=== PATIENT | female | born 1990 | race Caucasian/White ===

== ENCOUNTER 2016-11-19 12:11 | Emergency (ER) | payer OTHER ==
[2016-11-19 12:11] VITALS: BMI 29.5
[2016-11-19 12:45] LABS: HCG,QUALITATIVE URINE NEGATIVE (NEGATIVE)
[2016-11-19 12:54] LABS: SQUAMOUS EPITHIAL 25 /hpf (0-5); URINE BACTERIA RARE (<OCC); URINE BILIRUBIN NEGATIVE (NEGATIVE); URINE BLOOD NEGATIVE (NEGATIVE); URINE CLARITY Hazy (Clear); URINE COLOR Yellow (YELLOW); URINE GLUCOSE (UA) NORMAL (Normal); URINE LEUKOCYTE ESTERASE TRACE Leu/uL (Negative); URINE NITRATE NEGATIVE (NEGATIVE); URINE PROTEIN NEGATIVE (NEGATIVE); URINE UROBILINOGEN NORMAL mg/dL (0.2-1.0)
[2016-11-19] MEDS ORDERED: Sodium Chloride 0.9% 1,000 ML IV ONE (13:32)
--- NOTE | 2016-11-19 13:33 | C.PDOC ---
History Of Present Illness 25 y/o female pmhx uterine fibroids presents to the emergency department with complaints of lower abdominal and flank pain for the past few days with associated nausea and vomiting. Pt also feeling lightheaded. Pt states hasn't been able to tolerate PO. She states is it unlikely that she is , has contraceptive implant, does not get monthly menses. Denies dysuria, fever, chills, diarrhea, chest pain, SOB or any other complaints. Time Seen by Provider: 11/19/16 13:16 Chief Complaint (Nursing): Abdominal Pain History Per: Patient History/Exam Limitations: no limitations Onset/Duration Of Symptoms: Days Current Symptoms Are (Timing): Still Present Severity: Moderate Location Of Pain/Discomfort: RLQ, LLQ Radiation Of Pain To:: None Quality Of Discomfort: "Pain" Associated Symptoms: Nausea, Vomiting, Back Pain. denies: Fever, Chills, Diarrhea, Chest Pain, Urinary Symptoms Exacerbating Factors: None Alleviating Factors: None Recent travel outside of the [place]: No Past Medical History Reviewed: Historical Data, Nursing Documentation, Vital Signs Vital Signs: Last Vital Signs Temp 98.1 F 11/19/16 12:17 Pulse 81 11/19/16 12:17 Resp 20 11/19/16 12:17 BP 97/58 L 11/19/16 12:17 Pulse Ox 98 11/19/16 13:35 - [facility] Procedures DELIVERY OF PRODUCTS OF CONCEPTION, EXTERNAL APPROACH (09/05/15) EPISIOTOMY (06/13/14) INTRODUCE OF OTH THERAP SUBST INTO FEM REPROD, VIA OPENING (09/05/15) Family History: States: Unknown Family Hx - Social History Hx Tobacco Use: No Hx Alcohol Use: No Hx Substance Use: No - Immunization History Hx Tetanus Toxoid Vaccination: No Hx Influenza Vaccination: Yes Hx Pneumococcal Vaccination: No Review Of Systems Except As Marked, All Systems Reviewed And Found Negative. Constitutional: Negative for: Fever, Chills Cardiovascular: Negative for: Chest Pain Gastrointestinal: Positive for: Nausea, Vomiting, Abdominal Pain. Negative for : Diarrhea Genitourinary: Negative for: Dysuria, Hematuria Physical Exam - Physical Exam Appears: Non-toxic, No Acute Distress Skin: Warm, Dry, No Rash Head: Atraumatic, Normacephalic Oral Mucosa: Moist Neck: Normal, Normal ROM, Supple Chest: Symmetrical Cardiovascular: Rhythm Regular Respiratory: Normal Breath Sounds, No Rales, No Rhonchi, No Wheezing Gastrointestinal/Abdominal: Soft, Tenderness (diffuse lower abdominal), No Guarding, No Rebound Back: Other (mild flank tenderness) Neurological/Psych: Oriented x3, Normal Speech, Normal Cognition ED Course And Treatment - Laboratory Results Result Diagrams: 11/19/16 14:10 11/19/16 14:10 O2 Sat by Pulse Oximetry: 98 (room air) Pulse Ox Interpretation: Normal Medical Decision Making Medical Decision Making: Patient with no fever, no elevated WBC count, not , positive stool on X Ray, feeling better, tolorating POI. Plan to discharge. Disposition Counseled Patient/Family Regarding: Studies Performed, Diagnosis - Disposition Referrals: at [facility] [Outside] Disposition: HOME/ ROUTINE Disposition Time: 18:25 Condition: STABLE Additional Instructions: Siga con covarrubias doctor o la clinica. Regrese a la januray de emergenci con cualquier othro problema. Instructions: Enteritis (ED), Constipation (ED) Forms: Gen Discharge Inst Moroccan, [facility] (Moroccan) - POA Present On Arrival: None - Clinical Impression Clinical Impression: Abdominal pain, Constipation - Scribe Statement The provider has reviewed the documentation as recorded by the Gilberto Trinh Provider Attestation: All medical record entries made by the Gilberto were at my direction and personally dictated by me. I have reviewed the chart and agree that the record accurately reflects my personal performance of the history, physical exam, medical decision making, and the department course for this patient. I have also personally directed, reviewed, and agree with the discharge instructions and disposition.
[2016-11-19] MEDS ORDERED: Sodium Chloride 0.9% 1,000 ML ONE (13:54)
[2016-11-19 14:14] LABS: BASO # 0.1 K/uL (0.0-0.2); BASO % 0.6 % (0.0-2.0); EOS # 0.1 K/uL (0.0-0.7); EOS % 0.7 % (0.0-4.0); HEMOGLOBIN 14.4 g/dL (11.0-16.0); LYMPH # 3.1 K/uL (1.0-4.3); LYMPH % 30.9 % (20.0-40.0); MEAN CELL VOLUME 84.4 fL (81.0-99.0); MEAN CORPUSCULAR HEMOGLOBIN 28.6 pg (27.0-31.0); MEAN CORPUSCULAR HGB CONC 33.8 g/dL (33.0-37.0); MEAN PLATELET VOLUME 8.2 fL (7.2-11.7); MONO # 0.7 K/uL (0.0-0.8); MONO % 6.6 % (0.0-10.0); NEUT # 6.1 K/uL (1.8-7.0); NEUT % 61.2 % (50.0-75.0); RBC 5.05 Mil/uL (3.80-5.20)
[2016-11-19 14:27] LABS: GFR AFRICAN-AMERICAN > 60; GFR NON-AFRICAN AMERICAN > 60
[2016-11-19 14:28] LABS: BLOOD UREA NITROGEN 11 mg/dL (7-17); CALCIUM 9.3 mg/dl (8.6-10.4)
--- NOTE | 2016-11-19 16:08 | US ---
HISTORY: pelvic pain, hx of fibroids COMPARISON: Pelvic ultrasound performed 10/14/14 TECHNIQUE: Real-time transabdominal pelvic ultrasound was performed. In addition a transvaginal pelvic ultrasound was necessary to better depict pelvic anatomy. FINDINGS: UTERUS: Measures 7.7 x 3.5 x 4.3 cm. Anteverted. ENDOMETRIUM: Measures 6 mm in diameter. CERVIX: No cervical abnormality identified. RIGHT OVARY: Measures 2.7 x 2.2 x 2.5 cm. Blood flow is demonstrated. LEFT OVARY: Measures 3.0 x 2.4 x 2.5 cm. Blood flow is demonstrated. FREE FLUID: Small fluid within the cul-de-sac. OTHER FINDINGS: None. IMPRESSION: Small pelvic free fluid, may be physiologic. Otherwise unremarkable study as above.
--- NOTE | 2016-11-19 17:50 | RAD ---
HISTORY: abdominal pain COMPARISON: Abdominal radiographs performed 03/01/16 FINDINGS: BOWEL: Nonobstructive bowel gas pattern. No definite free air. BONES: No acute osseous abnormality is detected. OTHER FINDINGS: Elevation of the right hemidiaphragm. IMPRESSION: No acute findings. See above.
[2016-11-19 18:30] VITALS: BP 103/67
[2016-11-19 18:43] VITALS: PULSE 69; RESP 16; TEMP 98.3; O2SAT 99
== END 2016-11-19 18:45 | disposition home or self-care (01) ==
LOC: C.ER 12:11
DX: K59.00 Constipation, unspecified (principal); R10.30 Lower abdominal pain, unspecified
CPT/HCPCS: 74000; 76830; 76856; 80048; 81001; 84702; 84703; 85025; 96361; 96374; 96375; 99285; J1885; J2405; J7040

== ENCOUNTER 2017-12-19 10:10 | Emergency (ER) | payer MEDICAID ==
[2017-12-19 10:10] VITALS: BMI 29.5
[2017-12-19 10:18] VITALS: RESP 18; TEMP 97.5
[2017-12-19] MEDS ORDERED: Sodium Chloride 0.9% 1,000 ML IV ONE (11:06)
--- NOTE | 2017-12-19 11:08 | C.PDOC ---
History Of Present Illness 27 y/o female currently 19 weeks presents to ED with c/o low abdominal cramping pain since yesterday. Patient reports vaginal spotting, dizziness, vomiting and headache since yesterday. Patient has a scheduled OBGYN appointment on 12/27/18. Patient denies dysuria, fever, chills, back pain, dysuria or any other complaints at this time. Time Seen by Provider: 12/19/17 10:28 Chief Complaint (Nursing): Abdominal Pain History Per: Patient History/Exam Limitations: no limitations Onset/Duration Of Symptoms: Days Current Symptoms Are (Timing): Still Present Location Of Pain/Discomfort: Suprapubic Past Medical History Reviewed: Historical Data, Nursing Documentation, Vital Signs Vital Signs: Last Vital Signs Temp 97.5 F L 12/19/17 10:14 Pulse 78 12/19/17 13:38 Resp 18 12/19/17 13:38 BP 110/72 12/19/17 13:38 Pulse Ox 98 12/19/17 13:38 - Medical History PMH: No Chronic Diseases Surgical History: No Surg Hx - [facility] Procedures DELIVERY OF PRODUCTS OF CONCEPTION, EXTERNAL APPROACH (09/05/15) EPISIOTOMY (06/13/14) INTRODUCE OF OTH THERAP SUBST INTO FEM REPROD, VIA OPENING (09/05/15) Family History: States: No Known Family Hx - Social History Hx Tobacco Use: No Hx Alcohol Use: No Hx Substance Use: No - Immunization History Hx Tetanus Toxoid Vaccination: No Hx Influenza Vaccination: Yes Hx Pneumococcal Vaccination: No Review Of Systems Constitutional: Negative for: Fever, Chills Gastrointestinal: Positive for: Nausea, Vomiting, Abdominal Pain Genitourinary: Positive for: Vaginal Bleeding. Negative for: Dysuria, Vaginal Discharge Skin: Negative for: Rash Neurological: Positive for: Headache Physical Exam - Physical Exam Appears: Non-toxic, No Acute Distress Skin: Warm, Dry, No Rash Head: Atraumatic, Normacephalic Eye(s): bilateral: Normal Inspection Oral Mucosa: Moist Neck: Supple Cardiovascular: Rhythm Regular Respiratory: Normal Breath Sounds, No Rales, No Rhonchi, No Wheezing Gastrointestinal/Abdominal: No Tenderness, No Guarding, No Rebound, Other ( Gravid abdomen consistent with ) Back: No CVA Tenderness Neurological/Psych: Oriented x3, Normal Speech, Normal Cognition ED Course And Treatment - Laboratory Results Result Diagrams: 12/19/17 11:34 12/19/17 11:34 O2 Sat by Pulse Oximetry: 99 (RA) Pulse Ox Interpretation: Normal Medical Decision Making Medical Decision Making: On re-exam, the patient reports improvement of symptoms,. Ambulatory in the ED with steady gait. Lungs are CTA, heart is RRR, abdomen is soft, non-tender and the patient is tolerating PO well. Follow up with the medical doctor within 1-2 days, return if worsened. Disposition - Disposition Referrals: [facility] [Outside] [facility] [Outside] Disposition: HOME/ ROUTINE Disposition Time: 13:00 Condition: GOOD Additional Instructions: Follow up with the medical doctor within 1-2 days. Return if worsened. Prescriptions: Metoclopramide [Reglan] 1 tab PO TID PRN #25 tab PRN Reason: Nausea/Vomiting Instructions: Threatened Miscarriage Forms: Aleth (Danish) Print Language: SETSWANA - Clinical Impression Clinical Impression: Threatened - PA / SKI INSTRUCTOR / Resident Statement MD/DO has reviewed & agrees with the documentation as recorded. - Scribe Statement The provider has reviewed the documentation as recorded by the Scribwoody Vergara All medical record entries made by the Gilberto were at my direction and personally dictated by me. I have reviewed the chart and agree that the record accurately reflects my personal performance of the history, physical exam, medical decision making, and the department course for this patient. I have also personally directed, reviewed, and agree with the discharge instructions and disposition.
[2017-12-19] MEDS ORDERED: Sodium Chloride 0.9% 1,000 ML ONE (11:21)
[2017-12-19 11:53] LABS: BASO % 0.3 % (0.0-2.0); EOS # 0.1 K/uL (0.0-0.7); EOS % 0.9 % (0.0-4.0); LYMPH # 2.8 K/uL (1.0-4.3); LYMPH % 30.5 % (20.0-40.0); MEAN CELL VOLUME 85.1 fL (81.0-99.0); MEAN CORPUSCULAR HEMOGLOBIN 29.7 pg (27.0-31.0); MEAN PLATELET VOLUME 8.2 fL (7.2-11.7); MONO # 0.6 K/uL (0.0-0.8); MONO % 6.8 % (0.0-10.0); NEUT # 5.6 K/uL (1.8-7.0); NEUT % 61.5 % (50.0-75.0); RBC 3.88 Mil/uL (3.80-5.20); RED CELL DISTRIBUTION WIDTH 13.3 % (11.5-14.5); WHITE BLOOD COUNT 9.2 K/uL (4.8-10.8)
[2017-12-19 11:56] LABS: HCG,QUALITATIVE URINE POSITIVE (NEGATIVE); HEMOGLOBIN 11.5 g/dL (11.0-16.0)
[2017-12-19 12:05] LABS: SQUAMOUS EPITHIAL 20 /hpf (0-5); URINE BILIRUBIN NEGATIVE (NEGATIVE); URINE BLOOD NEGATIVE (NEGATIVE); URINE CLARITY Hazy (Clear); URINE COLOR Yellow (YELLOW); URINE GLUCOSE (UA) NORMAL (Normal); URINE LEUKOCYTE ESTERASE TRACE Leu/uL (Negative); URINE PROTEIN NEGATIVE (NEGATIVE)
[2017-12-19 12:17] LABS: ALB/GLOB RATIO 1.3 (1.0-2.1); ALBUMIN 3.6 g/dL (3.5-5.0); ALT/SGPT 25 U/L (9-52); AST/SGOT 16 U/L (14-36); BLOOD UREA NITROGEN 8 mg/dL (7-17); CALCIUM 9.1 mg/dl (8.6-10.4); GFR NON-AFRICAN AMERICAN > 60
--- NOTE | 2017-12-19 12:38 | US ---
Date of service: 12/19/2017 PROCEDURE: OB Pelvic Ultrasound HISTORY: 19 weeks, vag bleed, pelvic pain LMP: 08/06/2017 COMPARISON: No relevant prior imaging. FINDINGS: UTERUS: Placenta: Posterior. Presentation: Cephalic. BPD: 3.8 cm compatible with estimated gestational age of 17 weeks, 4 days. HC: 14.3 cm compatible with estimated gestational age of 17 weeks, 4 days. AC: 11.0 cm compatible with estimated gestational age of 16 weeks, 6 days. FL: 2.6 cm compatible with estimated gestational age is 17 weeks, 5 days. Heart rate: 146 bpm. age (Ultrasound estimated): 17 weeks, 3 days Tamera-gestational hemorrhage: Subchorionic hemorrhage measuring 4.8 x 1.4 x 2.1 cm Date of delivery (Ultrasound estimated) : 05/26/2018 EFW 190.1 grams 28.5 grams (7 ounces 1 ounce) CERVIX: Measures 3.6 cm. Long and closed. No cervical abnormality seen. FREE FLUID: None. OTHER FINDINGS: None. IMPRESSION: Single live intrauterine gestation with average ultrasound age of 17 weeks, 3 days. heart rate 146 beats per minute. Cervix long and closed. Subchorionic hemorrhage measuring 4.8 x 1.4 x 2.1 cm
[2017-12-19 13:39] VITALS: BP 110/72; PULSE 78
[2017-12-20 17:04] VITALS: O2SAT 99
== END 2017-12-19 13:39 | disposition home or self-care (01) ==
LOC: C.ER 10:10
DX: O20.0 Threatened abortion (principal); Z3A.19 19 weeks gestation of pregnancy
CPT/HCPCS: 76815; 80053; 81001; 84702; 84703; 85025; 86850; 86900; 96361; 96374; 99284; J2405; J7030

== ENCOUNTER 2018-02-06 17:15 | Emergency (ER) | payer MEDICAID ==
[2018-02-06 18:38] LABS: SQUAMOUS EPITHIAL 12 /hpf (0-5); URINE BACTERIA RARE (<OCC); URINE BILIRUBIN NEGATIVE (NEGATIVE); URINE BLOOD NEGATIVE (NEGATIVE); URINE CLARITY Hazy (Clear); URINE COLOR Yellow (YELLOW); URINE GLUCOSE (UA) NORMAL (Normal); URINE LEUKOCYTE ESTERASE TRACE Leu/uL (Negative); URINE PROTEIN NEGATIVE (NEGATIVE); URINE UROBILINOGEN NORMAL mg/dL (0.2-1.0)
--- NOTE | 2018-02-06 19:27 | OBHP ---
Datetime: 02/06/2018 18:50 IP Adm Impression: , intrauterine ; No Active Labor IP Chief Complaint Other: Pelvic pain IP Admit Plan: Discharge home Admit Comment, IP Provider: Patient is Portuguese-speaking; translation by Cecily Goldman 27 y.o. , revised EDILMA 05/26/18 per patient, 24w 3d c/o sudden onset lower abdominal pain at 1500 hours, pain scale 8/10, described as "if the baby is pressing down". (+) FM; denies LOF, VB, Ctx . Patient states this is not the first time she has experienced this type of pain: first time 2 diana hs ago; apparently treated for presumptive UTI. Also, pain started after receiving a disturbing phone call ... her maternal grandmother is "dying". 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 (+) h/o syphilis, diagnos ed 2013, treated with weekly injections x 3. Denies abnormal Pap; denies any other STI PMH: denies PSH: denies NKDA Meds: PNV, folic acid - each, once a day Soc Hx: denies tobacco, illicit drug or EtOH use. With FOB x 4 1/2 years; lives with him and her/t heir children. Unemployed Fam Hx: Mother alive 49 y.o. - uterine CA. Father alive 49 y.o. - no med issues. MGM - h/o uterin e cancer. P.E.: as above. Small, crying at times; in NAD. Awake, alert, oriented to time, person and place. Cooperative Assessment: 27 y.o. P2, 24w 3d, intermittent LAP with exacerbation today - may be stress- induced secondary to the sad news about her grandmother. FHR is appropriate for gestational age. Patient drin ks "not much water", and admits to not havving much of an appetite - not eating much. Advised to inco rporate more water intake, and to attempt to eat smaller meals, more frequently. Patient reassured; clinically stable. Plan: 1) U/A Addendum: U/A = trace leuk esterase; S.G. 1.021, trace ketones Assessment: Musculoskeletal pain most likely stress-induced; with short interval between pregnanci es. As above. Clinically stable. Plan: 1) Discharge home 2) Keep next scheduled appointment Pelvic Type - PN: Adequate Extremities - PN: Normal Abdomen - PN: Normal Back - PN: Normal Breast - PN: Not Done Lungs - PN: Normal Heart - PN: Normal Thyroid - PN: Not Done Neurologic - PN: Normal HEENT - PN: Normal General - PN: Normal Presentation-Admit: Vertex FHR - Baseline A Provider: 155 Contraction Comments Provider: none Comments, ACOG Physical Exam: Abdomen: Gravid. Soft in all quadrants. +/- (?)suprapubic tenderness All other systems reviewed and are negative Gestation - Est Wks by US: 24w 3d EGA AdmitDate IP: 24.3 Vital Signs Provider: Reviewed; Within Normal Limits IP Chief Complaint: Other NICHD Decel Fetus A IP Provider: None Dilatation, Provider: 0 Effacement, Provider: 0 Station, Provider: n/a Genitourinary Exam: Normal DTRs - PN: Not Done
[2018-02-07 00:48] VITALS: BP 100/70; PULSE 91
== END 2018-02-06 19:25 | disposition home or self-care (01) ==
LOC: C.EROB 17:15
DX: O26.892 Other specified pregnancy related conditions, second trimester (principal); R10.2 Pelvic and perineal pain; Z3A.24 24 weeks gestation of pregnancy

== ENCOUNTER 2018-03-18 18:48 | Emergency (ER) | payer MEDICAID ==
[2018-03-18 19:56] LABS: SQUAMOUS EPITHIAL 2 /hpf (0-5); URINE BACTERIA RARE (<OCC); URINE BILIRUBIN NEGATIVE (NEGATIVE); URINE BLOOD NEGATIVE (NEGATIVE); URINE CLARITY Clear (Clear); URINE COLOR Straw (YELLOW); URINE GLUCOSE (UA) NORMAL (Normal); URINE LEUKOCYTE ESTERASE NEG Leu/uL (Negative); URINE PROTEIN NEGATIVE (NEGATIVE); URINE UROBILINOGEN NORMAL mg/dL (0.2-1.0)
--- NOTE | 2018-03-18 23:25 | OBHP ---
Datetime: 03/18/2018 23:01 IP Adm Impression: , intrauterine ; No Active Labor IP Chief Complaint Other: No movement IP Admit Plan: Discharge home Admit Comment, IP Provider: Patient seen and evaluated at approximately 1905 hours. Patient is Divehi-speaking 27 y.o. , LMP unsure, EDILMA 05/26/18, EGA 30w 1d c/o no FM "all day" since 0800 hours. Also re ports LOF since 0830 hours " like water". lastly c/o LAP "all day". Last had sexual intercourse 1 wee k ago. care: [facility]; last visit 2 weeks ago; next visit Saturday03/21/18. Reportedly no is sues. 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 Denies other STIS, myoma, ovarian cysts. PMH: denies PSH: denies NKDA Meds: PNV, folic acid - each once daily Soc Hx: denies tobacco, illicit drug or EtOH use. Lives with FOB, together x 4 1/2 years. Unemploy ed Fam Hx: Mother alive 49 - uterine CA, S/P hysterectomy, HTN. Father alive 49 no med issues. MGM - uterine CA P.E.: as above. WD in NAD. Awake, alert, oriented to time, person and place. Pleasant and cooperat hakeem. FOB present Assessment: 27 y.o. P2, 30w 1d, No FM - for evaluation. No evidence of ROM. Category 1 soto ng. Clinically stable. Plan: 1) U/A 2) OB USG with BPP Addendum: - U/A: negative - OB USG: MARIELY 13.59cm, cervix. 3.50cm. cephalic, posterior fundal placenta Assessment: 27 y.o. P2, 30 w 1d, reassuring evaluation. No evidence of UTI. Pain is musculos keletal in origin. This was all D/W patient who expressed an understaindng. No questions offered. Pat ient is clinically stable. Plan: 1) discharge home 2) Reviewed S/S PTL 3) Keep all schedualed appointments Pelvic Type - PN: Adequate Extremities - PN: Normal Abdomen - PN: Normal Back - PN: Normal Breast - PN: Not Done Lungs - PN: Normal Heart - PN: Normal Thyroid - PN: Not Done Neurologic - PN: Normal HEENT - PN: Normal General - PN: Normal FHR - Baseline A Provider: 135 Contraction Comments Provider: none Comments, ACOG Physical Exam: Abdomen: Gravid. Soft. nontender in all quadrants Perineum: dry Spec: no pooling. Nitrazine (-) Extremities: no calf tenderness All other systems reviewed and are negative EGA AdmitDate IP: 30.1 Vital Signs Provider: Reviewed; Within Normal Limits IP Chief Complaint: Suspected ruptured membranes; Other Dilatation, Provider: FT Effacement, Provider: long Station, Provider: N/A Genitourinary Exam: Normal DTRs - PN: Normal
[2018-03-19 01:58] VITALS: BP 114/69; PULSE 82; RESP 20; TEMP 97.1; O2SAT 98
--- NOTE | 2018-03-19 08:56 | US ---
Date of service: 03/18/2018 PROCEDURE: Obstetrical ultrasound examination HISTORY: No FM since 800am; P3 COMPARISON: 12/19/2017 TECHNIQUE: Transabdominal FINDINGS: Examination demonstrates a single live intrauterine gestation in transverse lie. The heart rate is 138.9 beats per minute. A normal quantity of amniotic fluid is visualized. A fundal placenta is identified. There is no evidence of placenta previa. The cervix is closed and measures 3.8 cm, measured transvaginally. biometry demonstrates a gestational age of 31 weeks 3 days. The EDILMA by ultrasound is 05/17/2018. The EFW is 1696 g. Limited review of anatomy demonstrates fluid distending the stomach and urinary bladder. Two normal kidneys are demonstrated without evidence of hydronephrosis. The anterior abdominal wall is intact. A three-vessel umbilical cord is identified. Duplex Doppler ultrasound examination of the umbilical artery shows an S/D ratio of 3.0, within normal limits. Limited biophysical profile examination demonstrates a score of 8 out of 8. Normal movement was demonstrated sonographically. IMPRESSION: Single live intrauterine gestation of approximately 31 weeks 3 days without gross anatomic abnormality. Anatomic evaluation was limited given the late stage of gestation. Fundal placenta. No placenta previa. Normal amniotic fluid volume. Transverse lie. EFW 1696 g. Biophysical profile score 8 out of 8. The preliminary findings for this examination were reported by [facility] at 10:20 p.m. on 03/18/2018. There is concurrence of this report with the preliminary findings.
== END 2018-03-18 21:54 | disposition home or self-care (01) ==
LOC: C.EROB 18:48
DX: O36.8130 Decreased fetal movements, third trimester, not applicable or unspecified (principal); Z3A.30 30 weeks gestation of pregnancy

== ENCOUNTER 2018-05-07 11:43 | Outpatient (CLI) | payer SELFPAY | END 2018-05-07 11:44 | disposition home or self-care (01) | LOC: C.LAB 11:43 | DX: Z34.83 Encounter for supervision of other normal pregnancy, third trimester (principal) ==

== ENCOUNTER 2018-05-19 13:57 | Inpatient (IN) | payer MEDICAID ==
[2018-05-26] MEDS ORDERED: Lactated Ringer's 1,000 ML IV SCH (18:00)
[2018-05-26 18:39] LABS: BASO % 0.5 % (0.0-2.0); EOS % 0.4 % (0.0-4.0); HEMOGLOBIN 11.6 g/dL (11.0-16.0); LYMPH % 34.3 % (20.0-40.0); MEAN CELL VOLUME 81.1 fL (81.0-99.0); MEAN CORPUSCULAR HEMOGLOBIN 26.6 pg (27.0-31.0); MEAN CORPUSCULAR HGB CONC 32.8 g/dL (33.0-37.0); MEAN PLATELET VOLUME 9.1 fL (7.2-11.7); MONO # 0.6 K/uL (0.0-0.8); NEUT % 57.8 % (50.0-75.0); RBC 4.35 Mil/uL (3.80-5.20); RED CELL DISTRIBUTION WIDTH 16.2 % (11.5-14.5); WHITE BLOOD COUNT 8.6 K/uL (4.8-10.8)
--- NOTE | 2018-05-26 18:51 | OBADHP ---
Datetime: 05/26/2018 17:37 Admit Comment, IP Provider: Patient is a 27 year old at 40w1d EDILMA 05/25/18 by LMP who presents for suspected rupture of membranes. Patient states that she has been leaking fluid since 3am today. Initially she thought that it was urine however when the leaking did not stop she came in to be evalu ated. She states that she has also been experiencing a headache and dizziness that started this morni ng as well. She last ate breakfast this morning. She endorses +FM, denies CTX, VB. Issues: Denies OB Hx: 1. 2014 at term, female , 7lbs 6oz no complications 2. 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 2014, (+) RPR treated IM x 4, weekly Denies other STIS, fibroids, ovarian cysts. Allergies: NKDA Past Medical History: denies Past Surgical History: denies Medications: PNV, folic acid - each once daily Social History: denies tobacco, illicit drug or EtOH use. Lives with FOB, together x 4 1/2 years. Unemployed Family History: Mother alive 49 - uterine CA, S/P hysterectomy, HTN. Father alive 49 no med issue s. MGM - uterine CA PE: see above A/P: 27 year old at 40w1d who presents with premature rupture of membranes -Admit to unit -CEFM and TOCO -Admission labs: CBC, CMP, T+S, UA, RPR -Lactated Ringers at 125cc/hr -GBS negative - no antibiotics needed at this time -Cytotec 50mcg PO for cervical rippening -Anticipate vaginal delivery -Plan discussed with Dr Adam Dasilva DO PGY-2 Attending Note: patient seen, evaluated and examined by me with the Resident. I agree with the abo ve as documented. PROM confirmed by decreased MARIELY by bedside sono. BPS 09/27. Category 1 tracing. Patie nt is clinically stable. FHR - Baseline A Provider: 145 Contraction Comments Provider: irregular (Annotations: Data stored by CPN on behalf of user) Comments, ACOG Physical Exam: VSS Gen: AAOx3, NAD Abdomen: Soft, gravid Ext: No clubbing, cyanosis, edema SSE: No pooling, nitrazine negative SVE: 2-3/50/-3, posterior Bedside sonogram: position cephalic, MARIELY 5.75cm fundal placenta; (+) FBM; (+) FM; (+) cardiac activity; (+) FM IP Hx Assessment: The History has been Reviewed and is Current Vital Signs Provider: Reviewed IP Chief Complaint: Suspected ruptured membranes NICHD Variability Prov Fetus A: Moderate 6-25bpm NICHD Decel Fetus A IP Provider: None Dilatation, Provider: 2-3 Effacement, Provider: 50 Station, Provider: -3 EGA AdmitDate IP: 40.1 IP Adm Impression: Term, intrauterine ; No Active Labor; Ruptured Membranes IP Admit Plan: Admit to unit; Initiate labor protocol Datetime: 03/18/2018 23:01 IP Chief Complaint Other: No movement Pelvic Type - PN: Adequate Extremities - PN: Normal Abdomen - PN: Normal Back - PN: Normal Breast - PN: Not Done Lungs - PN: Normal Heart - PN: Normal Thyroid - PN: Not Done Neurologic - PN: Normal HEENT - PN: Normal General - PN: Normal Genitourinary Exam: Normal DTRs - PN: Normal Datetime: 02/06/2018 18:50 Presentation-Admit: Vertex Gestation - Est Wks by US: 24w 3d
[2018-05-26 18:55] LABS: ALB/GLOB RATIO 1.3 (1.0-2.1); ALBUMIN 3.7 g/dL (3.5-5.0); ALT/SGPT 15 U/L (9-52); AST/SGOT 24 U/L (14-36); BLOOD UREA NITROGEN 15 mg/dL (7-17); CALCIUM 9.2 mg/dl (8.6-10.4); GFR NON-AFRICAN AMERICAN > 60; SQUAMOUS EPITHIAL 14 /hpf (0-5); URINE BACTERIA RARE (<OCC); URINE BILIRUBIN NEGATIVE (NEGATIVE); URINE BLOOD NEGATIVE (NEGATIVE); URINE CLARITY Hazy (Clear); URINE COLOR Yellow (YELLOW); URINE GLUCOSE (UA) NORMAL (Normal); URINE LEUKOCYTE ESTERASE TRACE Leu/uL (Negative); URINE PROTEIN NEGATIVE (NEGATIVE); URINE UROBILINOGEN NORMAL mg/dL (0.2-1.0)
[2018-05-26] MEDS ORDERED: Bupivacaine HCl/FentaNYL Cit 100 ML EPI ONE ×2 (20:38→22:56)
[2018-05-26] MEDS ORDERED: AMPicillin 2 GM in Sodium Chloride 100 ML IVPB SCH ×2 (20:45→21:00)
[2018-05-26] MEDS ORDERED: Oxytocin 30 UNIT 30 UNITS/500 ML BAG IV SCH (22:00)
[2018-05-26] MEDS ORDERED: Oxytocin 30 UNIT 30 UNITS/500 ML BAG IV ONE (22:43)
--- NOTE | 2018-05-27 02:02 | OBPN ---
Datetime: 05/27/2018 01:12 IP Progress Impression: Normal progression of labor IP Procedures: Sterile Vag Exam IP Progress Plan: Continue present management; Augmentation; Anticipate Vaginal Delivery Membranes, Provider: Ruptured Amniotic Fluid Color, Provider: Clear Contraction Comments Provider: q2min FHR - Baseline A Provider: 140 IP Progress Note Comment: Patient seen and examined at bedside. Early decelerations noted on h eart tracing. Patient is resting comfortably. Vital Signs Reviewed SVE: /0 A/P: 27 year old at 40w2d in active labor -Continue present management -Anticipate vaginal delivery -Plan discussed with Dr Adam Dasilva DO PGY-2 Attending Note: I agree with the above Vital Signs Provider: Reviewed; Within Normal Limits FHR Category Provider Fetus A: Category I NICHD Variability Prov Fetus A: Moderate 6-25bpm Dilatation, Provider: 10 Effacement, Provider: 100 Station, Provider: 0 NICHD Decel Fetus A IP Provider: Early Datetime: 05/26/2018 22:05 NICHD Accel Fetus A IP Provider: [id number] Datetime: 02/06/2018 18:50 Gestation - Est Wks by US: 24w 3d Presentation-Admit: Vertex
[2018-05-27] MEDS ORDERED: Benzocaine/Menthol 20%-0.5% Topical Spray (60 ml) TOP PRN (02:29)
[2018-05-27] MEDS ORDERED: Oxytocin 10 Units/ml Inj ONE (02:30)
[2018-05-27] MEDS ORDERED: Oxytocin 10 Units/ml Inj IV ONE (02:36)
--- NOTE | 2018-05-27 02:46 | OBDS ---
DELIVERY PERSONNEL Delivery Doctor: Luther Medina MD Social Work Case Manager: Belem Stanton RN Anesthesiologist: MATERNAL INFORMATION Delivery Anesthesia: Epidural Medications in Delivery: pitocin 40 units Estimated Blood Loss (ml): 500 Placenta Cultured: No Maternal Complications: None RN Comments: to a live baby boy with 12/29 Provider Comments: This G3 now P3 delivered a viable male via over intact perineum. Infa nt's head was KELI and delivered in a controlled manner. Infant's shoulders were delivered atraumatica lly. 's mouth and nose were suctioned with bulb syringe. Cord was cut and clamped after 60 [address] delay. Cord pH and cord blood collected and sent to the lab. An intact 3VC placenta was delivered spontaneously. EBL 500cc. Mom and are recovering in stable condition. Dr Medina present for e ntire delivery. Lita Dasilva DO PGY-2 Attending Note: present for the entire delivery. I agree with the above as documented LABOR SUMMARY EDC: 05/25/2018 00:00 No. Babies in Womb: 1 Attempted: No Labor Anesthesia: Epidural LABOR INFORMATION Reason for Induction: Other Reason for Induction Other: POST DATE, PROM Complete Dilatation: 05/27/2018 01:05 Cervical Ripening Agents: Cytotec @ 50 bucal Oxytocin: Augmentation Group B Beta Strep: Negative Antibiotics # of Doses: 1 Antibiotics Time of Last Dose: 2234 Steroids Given: None Reason Steroids Not Administered: Not Applicable MEMBRANES Membranes Rupture Method: Spontaneous Rupture of Membranes: 05/26/2018 03:00 Length of Rupture (hrs): 23.27 STAGES OF LABOR Stage 2 hrs: 1 Stage 2 min: 11 Stage 3 hrs: 0 Stage 3 min: 7 VAGINAL DELIVERY Episiotomy: None Laceration Extension: N/A Laceration Type: None Initial Vag Sponge Count: 10 Final Vag Sponge Count: 10 Initial Vag Sharps Count: 0 Final Vag Sharps Count: 0 Sponge Count Correct: Yes; Vaginal Sweep Performed Sharps Count Correct: N/A BABY A INFORMATION Delivery Date/Time: 05/27/2018 02:16 Method of Delivery: Vaginal Born in Route : No : N/A Forceps: N/A Vacuum Extraction: N/A Shoulder Dystocia : No SHOULDER DYSTOCIA BABY A Infant Delivery Date/Time: 05/27/2018 02:16 PRESENTATION/POSITION BABY A Presentation: Cephalic Cephalic Presentation: Vertex Vertex Position: Left Occipital Anterior Breech Presentation: N/A PLACENTA INFORMATION BABY A Placenta Delivery Time : 05/27/2018 02:23 Placenta Method of Delivery: Spontaneous Placenta Status: Delivered SCORES BABY A Heart Rate 1 min: >100 bpm Resp Effort 1 min: Good Cry Reflex Irritability 1 min: Cough or Sneeze or Pulls Away Muscle Tone 1 min: Active Motion Color 1 min: Body [place], Extremities Blue SCORE 1 MIN: 9 Heart Rate 5 min: >100 bpm Resp Effort 5 min: Good Cry Reflex Irritability 5 min: Cough or Sneeze or Pulls Away Muscle Tone 5 min: Active Motion Color 5 min: Body [place], Extremities Blue SCORE 5 MIN: 9 INFORMATION BABY A Gestational Age at Delivery: 40+ Gestational Status: Term Outcome : Liveborn Condition : Stable Infant Sex: Male IDENTIFICATION/MEDS BABY A ID Band Number: [id number] Sensor Number: [id number] WEIGHT/LENGTH BABY A Infant Birthweight (gms): 2985 Weight (lb): 6 Infant Weight (oz): 9 Length Inches: 19.00 Length cms: 48.3 CORD INFORMATION BABY A No. Cord Vessels: 3 Nuchal Cord : N/A Cord Blood Taken: No
[2018-05-27] MEDS: Oxycodone/Acetaminophen 5/325 mg Tab PO PRN (06:37)
[2018-05-27 08:09] VITALS: RESP 18
[2018-05-27 11:29] LABS: BASO # 0.1 K/uL (0.0-0.2); EOS # 1.5 K/uL (0.0-0.7); EOS % 11.7 % (0.0-4.0); HEMOGLOBIN 10.7 g/dL (11.0-16.0); LYMPH % 23.7 % (20.0-40.0); MEAN CELL VOLUME 81.2 fL (81.0-99.0); MEAN CORPUSCULAR HEMOGLOBIN 26.9 pg (27.0-31.0); MEAN CORPUSCULAR HGB CONC 33.1 g/dL (33.0-37.0); MEAN PLATELET VOLUME 8.8 fL (7.2-11.7); MONO # 0.7 K/uL (0.0-0.8); MONO % 5.4 % (0.0-10.0); NEUT # 7.3 K/uL (1.8-7.0); NEUT % 58.2 % (50.0-75.0); RBC 3.97 Mil/uL (3.80-5.20); RED CELL DISTRIBUTION WIDTH 16.1 % (11.5-14.5); WHITE BLOOD COUNT 12.6 K/uL (4.8-10.8)
[2018-05-28 08:18] LABS: BASO # 0.1 K/uL (0.0-0.2); BASO % 0.5 % (0.0-2.0); EOS # 0.1 K/uL (0.0-0.7); EOS % 0.8 % (0.0-4.0); LYMPH # 3.9 K/uL (1.0-4.3); LYMPH % 35.1 % (20.0-40.0); MEAN CELL VOLUME 81.8 fL (81.0-99.0); MEAN CORPUSCULAR HEMOGLOBIN 27.2 pg (27.0-31.0); MEAN CORPUSCULAR HGB CONC 33.3 g/dL (33.0-37.0); MEAN PLATELET VOLUME 8.7 fL (7.2-11.7); MONO # 0.6 K/uL (0.0-0.8); MONO % 5.4 % (0.0-10.0); NEUT # 6.5 K/uL (1.8-7.0); NEUT % 58.2 % (50.0-75.0); NRBC % 0.1 % (0.0-2.0); RBC 4.03 Mil/uL (3.80-5.20); RED CELL DISTRIBUTION WIDTH 16.3 % (11.5-14.5); WHITE BLOOD COUNT 11.2 K/uL (4.8-10.8)
--- NOTE | 2018-05-28 09:44 | OBPPN ---
Datetime: 05/28/2018 07:36 PP Pain Prov: Within normal limits PP Nausea Prov: Denies PP Flatus Prov: Yes PP BM Prov: Yes PP Heart Prov: Normal PP Lungs Prov: Normal PP Abdomen/Uterus Prov: Normal PP Lochia Prov: Normal PP Extremities Prov: Normal PP Progress Prov: Normal PP Comments Phys Exam Prov: VSS PE: Gen: no acute distress Heart: RRR, no murmurs auscultated Lungs: CTA b/l, no W/R/R Abd: +BS, soft, nontender, fundal height 1 fingerbreadth below umbilicus Ext: no edema, nontender PP Impression Prov: Normal progression PP Plan Prov: Continue present management PP Progress Note Prov: Patient was seen and examined at bedside in no acute distress. Patient report s having mild pain, but the pain improving. She is breast feeding without difficulty. She is ambulati ng and tolerating her diet. The patient has had a normal BM this morning. She denies chest pain, dysp al, n/v, dizziness, leg pain. Plan: 27 year old s/p , PPD#1 - Continue pain management (Ibuprofen prn) - Continue Colace and Senna for constipation - Started Feosol 325mg PO daily - Encouraged ambulation and breast feeding - Continue current management Plan discussed with Dr. Tonie Michaels, PGY2 Vital Signs Provider PP: Reviewed; Within Normal Limits
[2018-05-28] MEDS: Oxycodone/Acetaminophen 5/325 mg Tab PO PRN (22:17)
[2018-05-29] MEDS ORDERED: Influenza Vaccine 60 mcg/0.5 mL SYR (4YR UP) IM ONE ×2 (12:32→15:30)
[2018-05-29 21:42] VITALS: BP 98/56; PULSE 98; TEMP 98.1; O2SAT 98
== END 2018-05-29 16:30 | disposition home or self-care (01) | DRG 560 ==
LOC: C.4D 05-26 17:50 → C.4M 05-27 04:15
PROVIDERS: ADMIT Obstetrics & Gynecology; ATTEND Obstetrics & Gynecology
PROC: 10E0XZZ Delivery of Products of Conception, External Approach (ICD-10-PCS; principal; 2018-05-27)
DX: O42.02 Full-term premature rupture of membranes, onset of labor within 24 hours of rupture (principal); Z3A.40 40 weeks gestation of pregnancy; Z37.0 Single live birth

== ENCOUNTER 2018-05-21 16:10 | Emergency (ER) | payer MEDICAID ==
--- NOTE | 2018-05-21 17:34 | OBHP ---
Datetime: 05/21/2018 16:31 IP Adm Impression: Term, intrauterine ; No Active Labor IP Admit Plan: Discharge home Admit Comment, IP Provider: Patient is a 27 year old at 39w3d with EDILMA 05/25/18 by US who pres ents to the unit for vaginal bleeding that started this morning. Patient states that when she used th e bathroom she noticed bright red blood in the toilet. She states that she recently had intercourse l ast night. She states that she has not eaten because she vomited twice earlier today. Admits to also having mild low back pain. Endorses +FM, denies LOF, CTX. Issues: Denies OB Hx: 1. 2014 at term, female , 7lbs 6oz no complications 2. 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 2014, (+) RPR treated IM x 4, weekly Denies other STIS, fibroids, ovarian cysts. Allergies: NKDA Past Medical History: denies Past Surgical History: denies Medications: PNV, folic acid - each once daily Social History: denies tobacco, illicit drug or EtOH use. Lives with FOB, together x 4 1/2 years. Unemployed Family History: Mother alive 49 - uterine CA, S/P hysterectomy, HTN. Father alive 49 no med issue s. MGM - uterine CA PE: see above A/P: 27 year old at 39w3d who presents with vaginal bleeding CEFM and TOCO Not in labor Will discharge home once NST is reactive Plan discussed with Dr Tonie Dasilva DO PGY-2 Contraction Comments Provider: none Comments, ACOG Physical Exam: VSS Gen: AAOx3, NAD Abdomen: Soft, gravid Ext: No clubbing, cyanosis, edema SVE: 50/-3, no active bleeding Bedside sonogram: cephalic IP Hx Assessment: The History has been Reviewed and is Current EGA AdmitDate IP: 39.3 Vital Signs Provider: Reviewed; Within Normal Limits IP Chief Complaint: Vaginal bleeding Dilatation, Provider: 1 Effacement, Provider: 50 Station, Provider: -3
--- NOTE | 2018-05-21 17:37 | OBDCSUM ---
Datetime: 05/21/2018 17:31 Follow up at, Provider: [facility] Disch Instr Activity: Normal activity Disch Instr Diet: Regular Discharge Time: 05/21/2018 17:30 Follow up in weeks, Provider: tomorrow Disch Referrals: None Disch Activity Restrictions: No lifting; Nothing in vagina - [place], tampons, douche Discharge Diagnosis Prov Other: 39 we vaginal beeeeing
[2018-05-21 21:40] VITALS: BP 117/73; PULSE 93; TEMP 98.6; O2SAT 97
== END 2018-05-21 17:30 | disposition home or self-care (01) ==
LOC: C.EROB 16:10
DX: O46.93 Antepartum hemorrhage, unspecified, third trimester (principal); Z3A.39 39 weeks gestation of pregnancy